=== PATIENT | female | born 1935 | race Hispanic/Latino ===

== ENCOUNTER 2020-03-19 08:25 | Emergency (ER) | payer MEDICARE ==
[~2020-03-19] VITALS: Ht 149.9 cm; Wt 46.7 kg
[~2020-03-19 08:25] MED LIST: AMLODIPINE BESY10 MG PO; ASPIR-LOW81 MG PO; BACTROBAN15 G1 TP; CALCIUM 600 +1 EAC1 PO; DIOVAN160 MG PO; EVISTA60 MG PO; FLUTICASONE; HYDROCORTISONE10 MG PO; LOVASTATIN10 MG PO; METOPROLOL SUCC25 MG PO; MONTELUKAST SOD10 MG PO; OMEGA-31000 MG PO; PENTOXIFYLLINE400 MG PO; TYLENOL WITH C1 EACH PO; VOLTAREN100 GM TOP; ZOFRAN ODT4 MG PO
[2020-03-19] MEDS ORDERED: HYDROCORTISONE10 MG PO (08:58)
[2020-03-19] MEDS ORDERED: LOVAZA1 GM PO (08:58)
[2020-03-19] MEDS ORDERED: ATORVASTATIN CA20 MG PO (08:58)
[2020-03-19] MEDS ORDERED: PENTOXIFYLLINE400 MG PO (08:58)
[2020-03-19] MEDS ORDERED: LOSARTAN-HCTZ1 EAC1 PO (08:58)
--- NOTE | 2020-03-19 09:04 | Emergency Department Note ---
History of Present Illnes History of Present Illness Chief Complaint: nose pain/rgt cw pain s/p trip and fall History of Present Illness This is a 84 year old female. was doing well prior to this. 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 Onset (how long ago): hour(s) (1.5) Location: see above Quality: sharp Radiation: Reports non-radiation Severity: moderate Onset quality: sudden Duration (how long): hour(s) (1.5) Timing of current episode: constant Progression: unchanged Chronicity: new Context: Reports trauma/injury; Denies recent illness, Denies recent surgery, Denies recent immobilization, Denies recent travel, Denies new medications, Denies hx of DVT/PE, Denies non- compliance w/ medications Relieving factors: none Exacerbating factors: movement Associated symptoms: Denies confusion, Denies chest pain, Denies cough, Denies diaphoresis, Denies fever/chills, Denies headaches, Denies loss of appetite, Denies malaise, Denies nausea/vomiting, Denies rash, Denies seizure, Denies shortness of breath, Denies syncope, Denies weakness Treatments prior to arrival: none Past Medical/Family History Physician Review I have reviewed the patient's past medical and family history. Any updates have been documented here. Past Medical History Recent Fever: No Clinical Suspicion of Infectio: No New/Unexplained Change in Ment: No Social History Smoking Cessation: Never Smoker Counseling Performed: No Any Illegal Drug Use: No TB Exposure/Symptoms: No Physically hurt or threatened: No Other Any Pre-Existing Lines (PICC,: No Is patient up to date on immun: No Review of Systems Review of Systems Constitutional: Reports no symptoms EENTM: Reports as per HPI, Reports nose pain Cardiovascular: Reports as per HPI, Reports chest pain Respiratory: Reports no symptoms Gastrointestinal: Reports no symptoms Genitourinary: Reports no symptoms Musculoskeletal: Reports no symptoms Integumentary: Reports no symptoms Neurological: Reports no symptoms Psychological: Reports no symptoms Endocrine: Reports no symptoms Hematological/Lymphatic: Reports no symptoms Review of other systems: All other systems negative Physical Exam Related Data Allergies: Coded Allergies: No Known Allergies (Unverified , 12/05/16) Triage Vital Signs Vital Signs Date Time Temp Pulse Resp B/P (MAP) Pulse Ox O2 Delivery O2 Flow Rate FiO2 03/19/20 08:27 98.0 84 16 172/78 98 Room Air Vital signs reviewed: Yes Physical Exam CONSTITUTIONAL Constitutional: Present well-developed, Present well-nourished HENT HENT: Present normocephalic, Present atraumatic, Present oropharynx c lear/moist, Present oropharynx normal, Present nose normal, Present other (nasal tenderness) HENT L/R: Present left ext ear normal, Present right ext ear normal EYES Eyes: Reports PERRL, Reports conjunctivae normal NECK Neck: Present ROM normal, Present supple, Present other (mild c spine tenderness) PULMONARY Pulmonary: Present effort normal, Present breath sounds normal, Present chest tenderness (rgt cw tendernes) CARDIOVASCULAR Cardiovascular: Present regular rhythm, Present heart sounds normal, Present capillary refill normal, Present normal rate GASTROINTESTINAL Abdominal: Present soft, Present nontender, Present bowel sounds normal GENITOURINARY Genitourinary: Present exam deferred SKIN Skin: Present warm, Present dry MUSCULOSKELETAL Musculoskeletal: Present ROM normal NEUROLOGICAL Neurological: Present alert, Present oriented x 3, Present no gross motor or sensory deficits PSYCHOLOGICAL Psychological: Present mood/affect normal, Present judgement normal Results Imaging Imaging results reviewed: Yes Impressions ct head/facial bones/c spine= negative, cxr rgt rib fracture Assessment & Plan Medical Decision Making MDM ich, rib fxs, ptx, contusion Assessment & Plan Final Impression: (1) Rib fracture (2) Multiple contusions Depart Disposition: HOME, SELF-CARE Last Vital Signs Date Time Temp Pulse Resp B/P (MAP) Pulse Ox O2 Delivery O2 Flow Rate FiO2 03/19/20 08:27 98.0 84 16 172/78 98 Room Air Home Meds Active Scripts Cyclobenzaprine Hcl (FLEXERIL) 5 Mg Tablet, 10 MG PO Q6H PRN for MUSCLE SPASMS, #30 TAB take after toradol to control pain if need be Prov:DANGELO CURTIS 03/19/20 Ketorolac Tromethamine (TORADOL) 10 Mg Tablet, 10 MG PO Q6H PRN for MODERATE PAIN (4-6), #20 Prov:DANGELO CURTIS 03/19/20 Reported Medications Diclofenac Sodium (VOLTAREN) 100 Gm Gel..gram. THERAPEUTICALLY SUBSTITUTED WITH IBUPROFEN 600MG 03/19/20 Hydrocortisone (HYDROCORTISONE) 10 Mg Tablet, 10 MG PO DAILY, TAB 03/19/20 Pentoxifylline (PENTOXIFYLLINE) 400 Mg Tablet.er, 400 MG PO BID, #30 TAB 03/19/20 [place]-3 Acid Ethyl Esters (LOVAZA) 1 Gm Capsule, 3 GM PO DAILY, CAP THERAPEUTICALLY SUBSTITUTED WITH OMEGA 3 FATTY ACID 03/19/20 Losartan/Hydrochlorothiazide (LOSARTAN-HCTZ 100-25 MG TAB) 1 Each Tablet, 1 TAB PO DAILY 03/19/20 Atorvastatin Calcium (ATORVASTATIN CALCIUM) 20 Mg Tablet, 20 MG PO HS, #30 TAB 03/19/20 Calcium Carbonate/Vitamin D3 (CALCIUM 600 + VIT D TABLET) 1 Each Tablet, PO DAILY 12/05/16 Aspirin (ASPIR-LOW) 81 Mg Tablet.dr, 81 MG PO DAILY 12/05/16 Metoprolol Succinate (METOPROLOL SUCCINATE) 25 Mg Tab.er.24h, 25 MG PO DAILY PRN for ELEVATED BLOOD PRESSURE for 30 Days, #60 10/20/16 Montelukast Sodium (MONTELUKAST SODIUM) 10 Mg Tablet, 10 MG PO DAILY, #30 TAB 10/17/16 Amlodipine Besylate (AMLODIPINE BESYLATE) 10 Mg Tablet, 5 MG PO DAILY, #30 TAB 10/17/16 Raloxifene Hcl (EVISTA) 60 Mg Tablet, 60 MG PO DAILY, #30 TAB 10/17/16 Discontinued Reported Medications [Fluticasone Ns Spy] No Conflict Check, 50 MCG NA DAILY 10/17/16 Diclofenac Sodium (VOLTAREN) 100 Gm Gel..gram., 1 DOSE TOP QID PRN for PAIN THERAPEUTICALLY SUBSTITUTED WITH IBUPROFEN 600MG 10/17/16 [place]-3 Fatty Acids (OMEGA-3) 1,000 Mg Capsule, 3000 MG PO DAILY 10/17/16 Pentoxifylline (PENTOXIFYLLINE) 400 Mg Tablet.er, 400 MG PO BID, #30 TAB 10/17/16 Lovastatin (LOVASTATIN) 10 Mg Tablet, 10 MG PO HS 10/17/16 Hydrocortisone (HYDROCORTISONE) 10 Mg Tablet, 10 MG PO DAILY, TAB 10/17/16 Valsartan (DIOVAN) 160 Mg Tab, 320 MG PO DAILY, #60 TAB 10/17/16 DANGELO CURTIS Mar 19, 2020 09:04
[2020-03-19] MEDS ORDERED: VOLTAREN100 GM (09:06)
--- NOTE | 2020-03-19 10:25 | Diagnostic Imaging Report ---
EXAMINATION: RIBS UNILAT W/CXR- HOPD INDICATION: ^pain/fall ^[id number] ^[id number] COMPARISON: None FINDINGS: TUBES and LINES: None. LUNGS: The lungs are hyperinflated. There is diffuse interstitial prominence throughout both lungs with bronchiectasis. Bibasilar atelectasis. No focal consolidation. PLEURA: No pleural effusion or pneumothorax. HEART AND MEDIASTINUM: The cardiomediastinal silhouette is unremarkable. There are atherosclerotic calcifications within the aorta. BONES AND SOFT TISSUES: The bones are diffusely demineralized which limits optimal assessment for nondisplaced fractures. There is mildly displaced right sixth rib fracture. Degenerative changes in the spine and shoulders. Soft tissues are unremarkable. UPPER ABDOMEN: No free air under the diaphragm. IMPRESSION: 1. Mildly displaced right sixth rib fracture. No pneumothorax. 2. Findings compatible with chronic emphysema. Diffuse interstitial lung markings may represent chronic scarring versus reactive airway disease or bronchitis. Signed by: Myra Chappell MD on 03/19/2020 10:21 AM
--- NOTE | 2020-03-19 10:34 | NUR ---
CALLED RADIOLOGY MAIN [facility] TO CHECK ON STATUS OF CT'S BEING READ.
--- NOTE | 2020-03-19 10:39 | Diagnostic Imaging Report ---
EXAM: CT HEAD WITHOUT CONTRAST, MAXILLOFACIAL CT WITHOUT CONTRAST, CT CERVICAL SPINE WITHOUT CONTRAST HISTORY: 84-year-old female with head/face and neck pain following trauma. Comparison studies:None TECHNIQUE: Axial images were obtained from the brain, face and cervical spine. Coronal and sagittal reconstructions obtained from the axial data. Dose modulation, iterative reconstruction, and/or weight based adjustment of the mA/kV was utilized to reduce the radiation dose to as low as reasonably achievable. FINDINGS: Head CT: Scalp/skull: No abnormalities. No fractures, blastic or lytic lesions. Extra-axial spaces: No masses. No fluid collections. Carotid siphon calcifications. Brain sulci: Appropriate for age. Ventricles: Normal in size and configuration. No hydrocephalus. Parenchyma: Mild periventricular white matter hypodensities are likely chronic microvascular ischemic changes. Chronic appearing right striatocapsular lacunar infarct. Otherwise, no masses, hemorrhage, acute cortical vascular insults. Sellar/suprasellar region: No abnormalities Craniocervical junction: Patent foramen magnum. No Chiari one malformation. Maxillofacial CT: Soft tissues: Punctate radiodensity within the left frontal subcutaneous soft tissues. Bones: There is osseous irregularity along the left anterior maxillary alveolar process, which appears sclerotic, and may be associated with prior dental extraction. Otherwise, no evidence of fracture. Orbits: Postoperative changes in the bilateral globes. Otherwise, no abnormalities. Paranasal sinuses: Clear. Cervical spine CT: Airway: Patent. Fractures: None. Soft tissues: No gross abnormalities. Surgical clips noted within the carotid spaces bilaterally. Atlantoaxial articulation: Intact. Moderate degenerative changes at the atlantoaxial interval. Alignment: Exaggerated lordotic curvature. Mild levoscoliosis. Cervicomedullary junction: No abnormalities. The foramen magnum is patent. Vertebrae: No infection or neoplasm. Degenerative changes: Mild multilevel spondylosis with intervertebral disc space narrowing at C4-5. Calcified posterior disc bulge at C6-7 causes at least mild canal stenosis. Multilevel uncovertebral and facet hypertrophy are seen throughout the cervical spine. Incidental findings: Bilateral peripheral opacities at the lung apices, favored to represent scarring. Mild bilateral carotid bulb calcified plaque is present. IMPRESSION: Head CT: 1. No CT evidence of acute intracranial process. Specifically, no intracranial hemorrhage or calvarial fracture. 2. Punctate foreign body within the left frontal scalp/soft tissues. 3. 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 Facial CT: 1. Chronic appearing irregularity along the left anterior maxillary alveolar process, which may be related to prior dental extraction. 2. Otherwise, no acute facial bone abnormality. Cervical spine CT: 1. Mild degenerative findings of the cervical spine. No acute fracture or malalignment. 2. Cannot adequately evaluate for ligament, spinal cord and or vascular abnormalities. Signed by: Dr. Dick Carrasco M.D. on 03/19/2020 11:49 AM
[2020-03-19] MEDS ORDERED: KETOROLAC TROME10 MG PO (11:28)
[2020-03-19] MEDS ORDERED: CYCLOBENZAPRINE5 MG PO (11:28)
[2020-03-19] MEDS ORDERED: IBUPROFEN 400 MG TAB PO ONE (11:30)
[2020-03-19] MEDS ORDERED: CYCLOBENZAPRINE HCL 10 MG TAB PO ONE (11:30)
[2020-03-19] MEDS ORDERED: CYCLOBENZAPRINE HCL 10 MG TAB ONE (11:38)
[2020-03-19] MEDS ORDERED: IBUPROFEN 400 MG TAB ONE (11:38)
== END 2020-03-19 11:37 | disposition home or self-care (01) ==
LOC: FSED 08:42
DX: S22.31XA Fracture of one rib, right side, initial encounter for closed fracture (principal); S00.83XA Contusion of other part of head, initial encounter; S10.93XA Contusion of unspecified part of neck, initial encounter; W01.0XXA Fall on same level from slipping, tripping and stumbling without subsequent striking against object, initial encounter; Y93.01 Activity, walking, marching and hiking; Y92.008 Other place in unspecified non-institutional (private) residence as the place of occurrence of the external cause
CPT/HCPCS: 70450; 70486; 71101; 72125; 99284